=== PATIENT | male | born 1960 | race Asian ===

== ENCOUNTER 2017-08-29 09:56 | Inpatient (IN) | payer MEDICAID ==
--- NOTE | 2017-08-29 10:19 | EDPHY ---
H & P Time Seen by Provider: 08/29/17 10:13 HPI/ROS: CHIEF COMPLAINT: Low sodium HISTORY OF PRESENT ILLNESS: Patient had office visit on 08/28/2017 and had diagnosis of hyponatremia with sodium 126. Apparently also has a history of liver disease and alcohol use. Presents today for evaluation. He says had back pain for 4 months is radiates down to his right foot. No weakness or numbness in the lower extremity and no incontinence. Mild headache which is been present for least a week No alcohol for the last 3 days. No history of seizure or tremor or confusion. REVIEW OF SYSTEMS: Eye: no change in vision ENT: no sore throat Cardiac: no chest pain or syncope Pulmonary: no cough or SOB Abdomen: no vomiting, diarrhea, abdominal pain, denies black or bloody stools. Musculoskeletal: HPI Skin: no rash Neuro: HPI Constitutional: no fever : no urinary symptoms A comprehensive 10 point review of systems is otherwise negative aside from elements mentioned in the history of present illness. PAST MEDICAL HISTORY: Per notes history of alcohol,"prediabetes"and hyperlipidemia. Depression, alcoholic liver disease, pancreatitis. Also has a history of hepatitis-C. Social history: Alcohol as noted above. General Appearance: Alert and conversant, cooperative. Eyes: No scleral icterus. Pupils equally reactive and extraocular motion intact. ENT, Mouth: Normal mucous membranes. Respiratory: Normal respiratory effort, breath sounds equal, lungs are clear to auscultation. Cardiovascular: Regular rate and rhythm. Gastrointestinal: Abdomen is soft and non tender. Neurological: Alert, face symmetric, normal motor and sensory in extremities. Ambulatory without ataxia. Fluent speech. Skin: Warm and dry, no rashes. Musculoskeletal: Lower midline spinal tenderness in the lumbar region. Psychiatric: Not agitated. Emergency Department course/MDM: Plan for labs to include sodium and electrolytes, liver function tests. Urinalysis. Lumbar spine x-rays for greater than 50 years old with pain for 4 months. Probable admission for pancreatitis. Lipase elevated, sodium is better today at 1:34 a.m.. Hematocrit noted is decreased. Admission for pancreatitis with lipase greater than 2 times the upper limit of normal. Back pain appears muscular without red flags to suggest he is high risk for spinal cord compression or PATENTS EXAMINER infection. Smoking Status: Former smoker Constitutional: Initial Vital Signs Temperature (C) 36.8 C 08/29/17 10:14 Heart Rate 94 08/29/17 10:14 Respiratory Rate 16 08/29/17 10:14 Blood Pressure 126/80 H 08/29/17 10:14 O2 Sat (%) 96 08/29/17 10:14 O2 Delivery Mode Room Air Allergies/Adverse Reactions: lisinopril Allergy (Verified 04/10/16 06:36) Home Medications: Medication Instructions Recorded Atorvastatin Calcium [Lipitor 20 20 mg PO DAILY 08/29/17 mg (*)] Hydrochlorothiazide [HCTZ (*)] 12.5 mg PO DAILY 08/29/17 Metoprolol Succinate 50 mg PO DAILY 08/29/17 Omeprazole 20 mg PO DAILY PRN 08/29/17 amLODIPine BESYLATE [Amlodipine 10 mg PO DAILY 08/29/17 Besylate] traZODone [traZODONE 50MG (*)] 150 mg PO DAILY@199908/29/17 Medical Decision Making - Diagnostics Imaging Results: Imaging Impressions Head CT 08/29/17 10:22 Impression: 1. Moderate cerebral and cerebellar atrophy. 2. No acute hemorrhage, hydrocephalus, or mass effect. 3. Moderate bilateral sinusitis. 4. No definite acute infarct. 5. Mild microvascular ischemic gliosis. Findings and recommendations discussed with emergency department physician, Nicolás Dias MD at 1100 hours on August 29, 2017. Final report concurs with initial preliminary interpretation. Lumbar Spine X-Ray 08/29/17 10:22 Impression: 1. Mild to moderate degenerative disk disease from L2-L3 through L5-S1 with degenerative retrolisthesis at L3-L4. 2. Mild levoscoliosis. 3. No destructive osseous lesions or compression fractures. 4. Consider MRI lumbar spine to further evaluate spinal canal stenosis at the L3 -L4 level, if clinically indicated. CT shows sinusitis atrophy otherwise negative, Isuani 1102. Differential Diagnosis: Differential considered for back pain including but not limited to spinal fracture, pancreatitis, spinal cord compression, lumbar strain. Consult/Admit Bed Type: [facility] for [place] 1046 - Data Points Laboratory Results: Laboratory Results 08/29/17 10:32 08/29/17 10:32 08/29/17 08/29/17 08/29/17 10:32 10:32 10:32 WBC 4.08 10^3/uL 10^3/uL (3.80-9.50) RBC 2.73 10^6/uL L 10^6/uL (4.40-6.38) Hgb 10.1 g/dL L g/dL (13.7-17.5) Hct 29.5 % L % (40.0-51.0) MCV 108.1 fL H fL (81.5-99.8) MCH 37.0 pg H pg (27.9-34.1) MCHC 34.2 g/dL g/dL (32.4-36.7) RDW 14.1 % % (11.5-15.2) Plt Count 70 10^3/uL L 10^3/uL (150-400) MPV 11.5 fL fL (8.7-11.7) Neut % (Auto) 39.8 % % (39.3-74.2) Lymph % (Auto) 43.1 % % (15.0-45.0) Dickens % (Auto) 14.2 % H % (4.5-13.0) Eos % (Auto) 2.2 % % (0.6-7.6) Baso % (Auto) 0.5 % % (0.3-1.7) Nucleat RBC Rel Count 0.0 % % (0.0-0.2) Absolute Neuts (auto) 1.62 10^3/uL L 10^3/uL (1.70-6.50) Absolute Lymphs (auto) 1.76 10^3/uL 10^3/uL (1.00-3.00) Absolute Monos (auto) 0.58 10^3/uL 10^3/uL (0.30-0.80) Absolute Eos (auto) 0.09 10^3/uL 10^3/uL (0.03-0.40) Absolute Basos (auto) 0.02 10^3/uL 10^3/uL (0.02-0.10) Absolute Nucleated RBC 0.00 10^3/uL 10^3/uL (0-0.01) Immature Gran % 0.2 % % (0.0-1.1) Immature Gran # 0.01 10^3/uL 10^3/uL (0.00-0.10) PT 17.0 SEC H SEC (12.0-15.0) INR 1.37 H (0.83-1.16) APTT 31.6 SEC SEC (23.0-38.0) Sodium 134 mEq/L L mEq/L (135-145) Potassium 3.9 mEq/L mEq/L (3.5-5.2) Chloride 103 mEq/L mEq/L (97-110) Carbon Dioxide 24 mEq/l mEq/l (22-31) Anion Gap 7 mEq/L L mEq/L (8-16) BUN 17 mg/dL mg/dL (7-23) Creatinine 1.3 mg/dL mg/dL (0.7-1.3) Estimated GFR 57 Glucose 224 mg/dL H mg/dL (70-100) Calcium 7.9 mg/dL L mg/dL (8.5-10.4) Total Bilirubin 1.4 mg/dL mg/dL (0.1-1.4) Conjugated Bilirubin 1.0 mg/dL H mg/dL (0.0-0.5) Unconjugated Bilirubin 0.4 mg/dL mg/dL (0.0-1.1) AST 109 IU/L H IU/L (17-59) ALT 77 IU/L H IU/L (21-72) Alkaline Phosphatase 138 IU/L H IU/L (38-126) Total Protein 7.6 g/dL g/dL (6.3-8.2) Albumin 2.4 g/dL L g/dL (3.5-5.0) Lipase 884 IU/L H IU/L (23-300) Ethyl Alcohol < 10 mg/dL mg/dL (0-10) Medications Given: Sodium Chloride (Ns) 1,000 mls @ 75 mls/hr IV CONT TIA Stop: 02/25/18 11:59 Last Admin: 08/29/17 13:13 Dose: 1,000 mls Discontinued Medications Sodium Chloride (Ns) 1,000 mls @ 0 mls/hr IV EDNOW ONE; Wide Open PRN Reason: Protocol Stop: 08/29/17 11:02 Last Admin: 08/29/17 11:16 Dose: 1,000 mls Sodium Chloride (Ns) 1,000 mls @ 0 mls/hr IV EDNOW ONE; Wide Open PRN Reason: Protocol Stop: 08/29/17 11:02 Last Admin: 08/29/17 11:41 Dose: 1,000 mls Departure - Departure Disposition: [facility] Acute Clinical Impression: Anemia Qualifiers: Anemia type: unspecified type Qualified Code(s): D64.9 - Anemia, unspecified Pancreatitis Qualifiers: Chronicity: acute Pancreatitis type: unspecified pancreatitis type Acute pancreatitis complication: unspecified Qualified Code(s): K85.90 - Acute pancreatitis without necrosis or infection, unspecified Condition: Good
[2017-08-29 10:39] LABS: PLATELET COUNT 70 10^3/uL (150-400)
[2017-08-29 10:58] LABS: INR 1.37 (0.83-1.16)
[2017-08-29] MEDS ORDERED: NS 1,000 ML IV ONE ×2 (11:01)
--- NOTE | 2017-08-29 11:27 | ASMTLACE ---
[place] Acuity / Level of Answers: Yes Care: Did the patient have an inpatient admission? Comorbidities - select Answers: Moderate or severe liver all that apply or renal disease # of Emergency department Answers: 1-2 visits in the last 6 months Score: 8 Date Signed: 08/29/2017 11:26 AM Electronically Signed By:Nery Rodríguez RN
[2017-08-29] MEDS: NS 1,000 ML IV SCH (13:13)
[2017-08-29] MEDS ORDERED: HYDROmorphONE/DILAUDID 1 MG/ML INJ IVP PRN (13:28)
[2017-08-29] MEDS ORDERED: ONDANSETRON 4 MG/2 ML VIAL IVP PRN (13:28)
[2017-08-29] MEDS ORDERED: ZOLPIDEM TARTRATE 5 MG TAB PO PRN (13:28)
[2017-08-29] MEDS ORDERED: ACETAMINOPHEN 325 MG TAB PO PRN (13:28)
[2017-08-29] MEDS ORDERED: NON-FORMULARY NEW DRUG (Omeprazole [Omeprazole] 20 MG) PO PRN (13:31)
--- NOTE | 2017-08-29 13:35 | PDGENHP ---
History and Physical History and Physical: CC: Low sodium and back pain HISTORY: This patient saw his primary care doctor yesterday or the day before and blood test showing a sodium 126. His doctor called him today and asked him to come to the emergency room. The patient does have a history of cirrhotic liver disease and is taking MAC side as a diuretic. His liver disease is caused by alcohol and he does admit he had several drinks of whiskey 3 and 4 days ago. He has had no nausea vomiting diarrhea anorexia and has been eating well. He denies any abdominal pain but does admit to some mid back discomfort for the last 3 days without radiation. There has been no injury. He admits to a slight dry cough and a stuffy nose but no nasal congestion or pain sore throat shortness of breath chest pain or fever symptoms. He has no myalgias or arthralgias and no nausea or vomiting. ROS: A comprehensive 10 system review revealed no other significant findings PAST MEDICAL HISTORY: Alcoholic liver disease with evidence of cirrhosis Alcohol related pancreatitis Hyponatremia Hypertension Depression Hyperlipidemia Hepatitis C Hypothyroidism FAMILY MEDICAL HISTORY: Brother with coronary disease SOCIAL HISTORY: He says that he had been sober for quite some time but had been with a friend a few days ago who had whiskey and they drank whiskey together. Denies any tobacco or street drug use Has worked in hotel maintenance MEDICATIONS: The patients list has been reconciled by our clinical pharmacist in the EMR. I have reviewed the list and ordered appropriate medicines. PHYSICAL EXAMINATION: Vital Signs: Mild systolic hypertension otherwise normal without fever Gericare Aide: Examination: General: alert, oriented, good mentation, relaxed Skin: warm, dry, good color, no rash no jaundice HEENT: normal Neck: no mass or jvd Resps: relaxed Lungs: clear breath sounds Heart: regular, no murmur Abdomen: Caput medusae are present on the abdomen, no definite evidence of ascites: Otherwise soft, nondistended, nontender, +BS, no mass Upper Extremities: normal Lower Extremities: no edema, warm No Bleeding or bruising Neurologic: normal speech/language, normal demonstrator sewing techniques, no focal weakness IV site: looks normal LABORATORY DATA: Sodium is now at 134, lipase elevated at 880 Glucose 224 Electrolytes otherwise normal renal function good Liver enzymes are elevated with AST twice ALT consistent with alcohol induced hepatitis, mild with normal bilirubin at present There is a coagulopathy with INR 1.34 Albumin 2.4 Macrocytic anemia is present, mild Platelets are low at his baseline 70,000 RADIOLOGY STUDIES: None so far ASSESSMENT: # hyponatremia noted on yesterday's blood test has resolved, believe it was likely due to in part his alcohol intake and hydrochlorothiazide # acute pancreatitis due to alcohol consumption with prior history of pancreatitis, uncomplicated at present # alcohol-induced hepatitis, acute but mild # alcoholism was sober but had started drinking again a few days ago # macrocytic anemia and thrombocytopenia due to his cirrhotic liver disease and alcohol # coagulopathy due to alcohol induced liver disease # 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 albumin, again due to his alcohol induced liver disease # hyperglycemia, new problem for him at this time will need to test for diabetes # chronic hepatitis C # hypothyroidism on replacement PLANS: -NPO for now, IV hydration for his acute pancreatitis -follow course of his pancreatitis clinically and will recheck his lipase -will not do any imaging right now but if he has failure to resolve his pancreatitis will check CT and ultrasound -oral fluid restriction due to his recent hyponatremia and will recheck a sodium , will hold his hydrochlorothiazide for now -will check hemoglobin A1c as he has such a high glucose -thiamin replacement -do not think he is at significant risk for withdrawal right now but will watch carefully for any signs of that -had a long discussion with the patient about the dangers of ongoing alcohol use for him, the complications of pancreatitis that can occur acutely as well as chronic pancreatitis as well as progressive liver disease. Given his synthetic dysfunction and coagulopathy clearly has significant degree of cirrhotic liver disease. I did encourage him to continue to do all he can to remain abstinent from alcohol, work with his primary care physician and any other support system he has and will make sure he has list of all they local support services available to him before he leaves the hospital With acute pancreatitis, hyponatremia yesterday, and significant likelihood of resuming alcohol consumption, will anticipate he will need 48 hr or more to ensure stability and appropriate follow-up care and supportive care. Will admit as inpatient I have reviewed the patient's past medical records as part of this assessment, including prior hospital admission records, outpatient laboratory data
[2017-08-29] MEDS ORDERED: HYDROmorphONE/DILAUDID 2 MG/ML INJ IVP PRN (14:11)
[2017-08-29] MEDS ORDERED: PANTOPRAZOLE SODIUM 40 MG TAB PO PRN (14:12)
--- NOTE | 2017-08-29 14:31 | PDMN ---
Medical Necessity Medical necessity: C/M review: est. > 2 MN LOS for eval and TX of acute - pancreatitis due to alcohol consumption, alcoholic induced hepatitis, macrocytic anemia and thrombocytopenia, coagulopathy, synthetic liver dysfunction, new hyperglycemia, hyponatremia on 08/28/2017 blood work - resolved, requiring ongoing NPO, IV fluids, monitor fyr alcohol withdrawal, comorbid alcoholism, chronic hepatitis C, hypothyroidism, history of alcoholic liver disease with evidence of cirrhosis, alcoholic related pancreatitis, hyponatremia , hypertension, depression, hyperlipidemia per H/P.
[2017-08-29] MEDS: THIAMINE HCL 100 MG TAB PO SCH (14:35)
--- NOTE | 2017-08-29 16:20 | ASMTCMCOM ---
CM Note CM Note Notes: Pt lives in a home with his , was sober but recently started drinking again. May benefit from receiving etoh resources. Otherwise per RN, pt will dc home w/support of family when medically stable. CM available for any changes. DC Plan: Independent Date Signed: 08/29/2017 04:20 PM Electronically Signed By:Sarah Warren RN
[2017-08-29] MEDS: traZODone 50 MG TAB PO SCH (22:55)
[2017-08-30] MEDS: NS 1,000 ML IV SCH (02:39)
[2017-08-30] MEDS: ENOXAPARIN 40 MG/0.4 ML SYR SC SCH (08:27)
[2017-08-30] MEDS: METOPROLOL SUCCINATE XR 50 MG TAB PO SCH (08:30)
[2017-08-30] MEDS: ATORVASTATIN CALCIUM 20 MG TAB PO SCH (08:31)
[2017-08-30] MEDS: THIAMINE HCL 100 MG TAB PO SCH (08:31)
[2017-08-30] MEDS ORDERED: HYDROCHLOROTHIAZIDE 12.5 MG CAP PO SCH (09:00)
--- NOTE | 2017-08-30 10:58 | HOSPPROG ---
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 At this point he is tolerating some clear liquids and I will give him a trial of some solid food to see how he tolerates that and have him attempt ambulation. I did review with him the prognosis for his liver disease. At this point he has synthetic dysfunction with high INR and low albumin though has a normal bilirubin. He has not yet had GI bleeds in does not have ascites. In 2009 he had hepatitis C with count greater than 1 million. He has not seen a a r specialist or considered specific medical treatment for his hepatitis-C. He has mostly done well with avoiding alcohol prior to this acute episode. I reviewed with him the significant complications including the various complications of cirrhosis including and up to , as well as the possibility of hepatoma. I discussed with him that he would only be a liver transplant if he were not drinking. I also did discuss with him at great length the change in prognosis with or without aggressive treatment of the hepatitis-C virus. Is my strong recommendation that he engage with a r specialist here in [place] to review his treatment options in the near future. I answered questions and it sounds like he is interested in this so I will make a referral at the time of discharge. 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, my review: Exam: alert oriented skin warm dry color ok, no jaundice resps not labored lungs clear BSs heart regular abd soft nondistended nontender, bowel sounds present limbs warm, no edema iv site ok Laboratory data: Decreases in both his liver enzymes and lipase, other blood test numbers stable overall, sodium remains good Objective: Vital Signs Temp Pulse Resp BP Pulse Ox 36.4 C 83 16 110/61 96 08/30/17 07:39 08/30/17 07:39 08/30/17 07:39 08/30/17 07:39 08/30/17 07:39 Laboratory Results 08/30/17 04:44 08/29/17 08/30/17 08/31/17 06:59 06:59 06:59 Intake Total 3686 949 Output Total 2875 500 Balance 811 449 PT 17.0 SEC (12.0-15.0) H 08/29/17 10:32 INR 1.37 (0.83-1.16) H 08/29/17 10:32 - Time Spent With Patient Time Spent with Patient: greater than 35 minutes Time Spent with Patient: Greater than 35 minutes spent on this patients care, greater than 50% of time spent counseling, educating, and coordinating care regarding the above mentioned plan. ICD10 Worksheet Patient Problems: Problems Problem Status Onset Anemia Acute Pancreatitis Acute
[2017-08-30] MEDS: traZODone 50 MG TAB PO SCH (20:09)
[2017-08-31 08:10] VITALS: RESP 12
[2017-08-31] MEDS: THIAMINE HCL 100 MG TAB PO SCH (08:24)
[2017-08-31] MEDS: METOPROLOL SUCCINATE XR 50 MG TAB PO SCH (08:24)
[2017-08-31] MEDS: ATORVASTATIN CALCIUM 20 MG TAB PO SCH (08:25)
[2017-08-31] MEDS: ENOXAPARIN 40 MG/0.4 ML SYR SC SCH (08:25)
[2017-08-31 12:07] VITALS: BP 131/65; PULSE 76; TEMP 98.2; O2SAT 95
--- NOTE | 2017-08-31 20:43 | PDDCSUM ---
Discharge Summary Discharge Summary: Date of Admission: 08/29/17 Date of Discharge: 08/31/17 DISCHARGE DIAGNOSES 1. Acute hyponatremia 2. Acute pancreatitis due to alcohol 3. Acute alcohol-induced hepatitis 4. Chronic alcoholism 5. Chronic macrocytic anemia and thrombocytopenia due to his cirrhotic liver disease and alcohol 6. 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 New diagnosis diabetes type II w/ hyperglycemia 8. Chronic hepatitis C PROCEDURES: None CONSULTATIONS: None Chief Complaint: Back pain Subjective: Patient feeling well, no abd pain, moving bowels, tolerating PO Physical Exam: SBP 100-130, HR 80, satting well on room air, afebrile overnight , no tremulousness, no asterixes, pulse normal, AAOx3 HOSPITAL COURSE Mr. Lange presented with back pain and a sodium level of 126 on outpatient labs, with a suggestion to present to [facility]. His lipase was 880, and clinically he had acute on chronic pancreatitis. His hyponatremia was likely 2/2 HCTZ and acute hypovolemia, and he was placed on IVF, made NPO, placed on supportive pain Rx, and had the HCTZ discontinued. His alcohol level was negative and he had no e/o alcohol withdraw, but there was strong suspicion that his acute pancreatitis flare was 2/2 recent alcohol relapse. His PCP shared her concerns regarding alcohol use and possible withdraw, and he was monitored for withdraw, but did not require pharmacotherapy. After bowel rest, patient's pancreatitis improved, and he was started on clear liquids. He tolerated this diet, and it was advanced further. His pain was subsequently managed on tylenol and ibuprofen and he requested to be discharged home. Given his impaired synthetic liver function and hx of concomitant HCV, we recommended outpatient follow-up with Dr. Roberts and complete alcohol cessation. He also has new diagnosis DM2 ( which can be currently diet managed), and he should follow-up with PCP. Discharge labs: INR 1.37, Plts 70,000, Hgb 10.1, Na 136, Cr 1.1, A1c 6.6% Discharge medications: please see official discharge medication reconciliation sheet in chart, of note, stop HCTZ, tylenol/ibuprofen PRN Discharge instructions: Please follow-up with [facility] tomorrow, please schedule with Dr. Roberts in 2 weeks. > 30 minutes spent with patient, on care and discharge planning/preparation.
== END 2017-08-31 14:58 | disposition home or self-care (01) | DRG 439 ==
LOC: F3E 11:52
PROVIDERS: ADMIT Hospitalist; ATTEND Internal Medicine
DX: K85.20 Alcohol induced acute pancreatitis without necrosis or infection (principal); E87.1 Hypo-osmolality and hyponatremia; K86.0 Alcohol-induced chronic pancreatitis; D68.4 Acquired coagulation factor deficiency; K70.10 Alcoholic hepatitis without ascites; F10.20 Alcohol dependence, uncomplicated; E11.65 Type 2 diabetes mellitus with hyperglycemia; D53.9 Nutritional anemia, unspecified; D69.59 Other secondary thrombocytopenia; B18.2 Chronic viral hepatitis C; M54.5 Low back pain; M51.37 Other intervertebral disc degeneration, lumbosacral region; F32.9 Major depressive disorder, single episode, unspecified; I10 Essential (primary) hypertension; E03.9 Hypothyroidism, unspecified; E78.5 Hyperlipidemia, unspecified
CPT/HCPCS: G0480; J1170; J1650; J2270

== ENCOUNTER 2018-12-12 21:56 | Inpatient (IN) | payer OTHER, MEDICAID | END 2018-12-21 15:48 | disposition home or self-care (01) | LOC: F2N 12-16 12:21 → F2W 12-13 01:10 → F2N 12-13 08:31 → F2W 12-17 10:35 → F2N 12-13 09:19 → F2W 12-17 14:42 ==